=== PATIENT | female | born 2000 | race Hispanic/Latino ===

== ENCOUNTER 2023-01-19 17:49 | Emergency (ER) | payer BC, OTHER, SELFPAY ==
[2023-01-19 18:44] LABS: Bilirubin Neg (Negative); Blood, Urine Negative (Negative); Clarity Clear (Clear); Glucose, Urine (Dipstick) Normal (Negative); Ketone, Urine Negative (Negative); Leukocyte Negative (Negative); Nitrite Negative (Negative); Protein, Urine (Dipstick) Negative (Neg-Trace); Specific Gravity, Urine 1.015 (1.005-1.030); Urobilinogen Normal mg/dL (Less than 2)
[2023-01-19 19:07] LABS: Bacteria/HPF None Seen HPF (None Seen); CAUTI Indications for Culture Alt mental st,lethar; RBC/HPF None Seen HPF (0-3); Squamous Epithelial 0-3 HPF (0-3); WBC/HPF None Seen HPF (0-3)
[2023-01-19 19:08] LABS: Urine Culture Reflex No No
[2023-01-19 19:08] LABS: #Eosinphils 0.1 10x3/uL (0.0-0.5); #Monocytes 0.8 10x3/uL (0.0-1.1); #Neutrophils 11.6 10x3/uL (1.5-8.4); %Basophils 0.3 % (0.0-2.0); %Eosinophils 0.5 % (0.0-6.0); %Lymphocytes 14.2 % (18.0-47.0); %Monocytes 5.6 % (0.0-10.0); %Neutrophils 79.1 % (40.0-75.0); Hematocrit 34.4 % (34.9-44.5); Hemoglobin 12.6 g/dL (12.0-15.5); Mean Corpuscular HGB CONC 36.6 g/dL (32.0-36.0); Mean Corpuscular Hemoglobin 32.7 pg (27.0-33.0); Mean Corpuscular Volume 89.4 fl (81.6-98.3); Mean Platelet Volume 9.8 fl (7.4-10.4); Platelet Count 258 10x3/uL (150-450); Red Blood Cell (RBC) Count 3.85 10x6/uL (3.90-5.03); White Blood Cell (WBC) Count 14.7 10x3/uL (3.5-10.5)
[2023-01-19 19:23] LABS: ALT (SGPT) 8 U/L (8-55); AST (SGOT) 9 U/L (5-34); Albumin 3.8 g/dL (3.5-5.0); Alkaline Phosphatase 41 U/L (40-110); Anion Gap 14 mmol/L (10-20); BUN (Urea Nitrogen) 6 mg/dL (7.0-18.7); Bilirubin, Total 0.4 mg/dL (0.2-1.2); Calc. Creatinine Clearance 0 mL/min (70-130); Calcium 9.1 mg/dL (7.8-10.44); Carbon Dioxide 19 mmol/L (22-29); Chloride 109 mmol/L (98-107); Estimated GFR 128; Globulin 2.5 g/dL (2.4-3.5); Glucose 105 mg/dL (70-105); Lipase 26 U/L (8-78); Potassium 3.7 mmol/L (3.5-5.1); Protein, Total 6.3 g/dL (6.0-8.3); Sodium 138 mmol/L (136-145)
[2023-01-19 20:12] LABS: Troponin I Less than 0.010 ng/mL (< 0.028)
== END 2023-01-19 21:08 | disposition home or self-care (01) ==
LOC: CSHERS 17:49
DX: O99.891 Other specified diseases and conditions complicating pregnancy (principal); R55 Syncope and collapse; Z3A.10 10 weeks gestation of pregnancy
CPT/HCPCS: 76815; 80053; 81001; 83690; 84484; 85025; 93005; 96360; 96361

== ENCOUNTER 2023-03-27 08:25 | Emergency (ER) | payer MEDICAID, OTHER | END 2023-03-27 11:27 | disposition home or self-care (01) | LOC: CSHERS 08:25 | DX: R09.1 Pleurisy (principal) | CPT/HCPCS: 71045; 85379; 93005 ==

== ENCOUNTER 2023-03-31 02:54 | Emergency (ER) | payer OTHER ==
[2023-03-31] MEDS ORDERED: Acetaminophen 500 MG TAB ONE (03:13)
== END 2023-03-31 04:00 | disposition home or self-care (01) ==
LOC: CSHERS 02:54
DX: R07.89 Other chest pain (principal)
CPT/HCPCS: 93005

== ENCOUNTER 2023-06-30 23:59 | Day surgery (SDC) | payer OTHER ==
[2023-07-01 01:07] VITALS: BMI 29.2
[2023-07-01 01:29] LABS: Bilirubin Neg (Negative); Blood, Urine Negative (Negative); Clarity Clear (Clear); Glucose, Urine (Dipstick) Normal (Negative); Ketone, Urine Negative (Negative); Leukocyte Negative (Negative); Nitrite Negative (Negative); Protein, Urine (Dipstick) Negative (Neg-Trace); Specific Gravity, Urine 1.015 (1.005-1.030)
[2023-07-01 01:35] LABS: Bacteria/HPF None Seen HPF (None Seen); CAUTI Indications for Culture Pelvic or flank pain; RBC/HPF None Seen HPF (0-3); Squamous Epithelial 0-3 HPF (0-3); Urine Culture Reflex No No; WBC/HPF 0-3 HPF (0-3)
[2023-07-01 01:36] LABS: #Basophils 0.03 10x3/uL (0.0-0.2); #Eosinphils 0.13 10x3/uL (0.0-0.5); #Monocytes 1.16 10x3/uL (0.0-1.1); %Basophils 0.2 % (0.0-2.0); %Neutrophils 70.3 % (40.0-75.0); Hematocrit 31.6 % (34.9-44.5); Mean Corpuscular HGB CONC 34.8 g/dL (32.0-36.0); Mean Corpuscular Hemoglobin 31.5 pg (27.0-33.0); Mean Corpuscular Volume 90.5 fl (81.6-98.3); Mean Platelet Volume 9.6 fl (7.4-10.4); Platelet Count 247 10x3/uL (150-450); Red Blood Cell (RBC) Count 3.49 10x6/uL (3.90-5.03); White Blood Cell (WBC) Count 12.8 10x3/uL (3.5-10.5)
[2023-07-01 01:49] LABS: ALT (SGPT) 7 U/L (8-55); AST (SGOT) 14 U/L (5-34); Albumin 2.3 g/dL (3.5-5.0); Alkaline Phosphatase 133 U/L (40-110); Anion Gap 13 mmol/L (10-20); BUN (Urea Nitrogen) 6 mg/dL (7.0-18.7); Bilirubin, Total 0.4 mg/dL (0.2-1.2); Calc. Creatinine Clearance 163 mL/min (70-130); Carbon Dioxide 21 mmol/L (22-29); Chloride 108 mmol/L (98-107); Estimated GFR 127; Globulin 3.5 g/dL (2.4-3.5); Glucose 76 mg/dL (70-105); Potassium 3.5 mmol/L (3.5-5.1); Protein, Total 5.8 g/dL (6.0-8.3); Sodium 138 mmol/L (136-145)
[2023-07-01] MEDS ORDERED: hydrALAZINE 20 MG/ML VIAL SLOW IVP PRN (02:45)
[2023-07-01] MEDS: Acetaminophen 325 MG TAB PO PRN (06:05)
== END 2023-07-01 06:20 | disposition home or self-care (01) ==
LOC: CSHLD/OP 23:59
PROVIDERS: ATTEND Family Medicine
DX: O99.891 Other specified diseases and conditions complicating pregnancy (principal); R10.11 Right upper quadrant pain; M94.0 Chondrocostal junction syndrome [Tietze]; Z79.899 Other long term (current) drug therapy
CPT/HCPCS: 36415; 76705; 80053; 81001; 85025

== ENCOUNTER 2023-08-03 04:41 | Day surgery (SDC) | payer OTHER ==
[2023-08-03 05:26] VITALS: BMI 30.1
[2023-08-03] MEDS ORDERED: hydrALAZINE 20 MG/ML VIAL SLOW IVP PRN (05:33)
[2023-08-03] MEDS ORDERED: Acetaminophen 500 MG TAB PO SCH (05:45)
[2023-08-03 05:55] LABS: Bilirubin Neg (Negative); Blood, Urine 10 (Negative); Clarity Clear (Clear); Glucose, Urine (Dipstick) Normal (Negative); Ketone, Urine Negative (Negative); Leukocyte Negative (Negative); Nitrite Negative (Negative); Protein, Urine (Dipstick) 15 mg/dl (Neg-Trace); Specific Gravity, Urine 1.015 (1.005-1.030)
[2023-08-03 06:03] LABS: Bacteria/HPF Rare-Few HPF (None Seen); CAUTI Indications for Culture Pregnancy; Mucous/LPF Rare LPF (<2+); RBC/HPF 0-3 HPF (0-3); Squamous Epithelial 0-3 HPF (0-3); WBC/HPF 0-3 HPF (0-3)
[2023-08-03 06:05] LABS: Urine Culture Reflex Yes Yes
== END 2023-08-03 07:44 | disposition home or self-care (01) ==
LOC: CSHLD/OP 04:41
PROVIDERS: ATTEND Student in an Organized Health Care Education/Training Program
DX: O47.1 False labor at or after 37 completed weeks of gestation (principal); O99.891 Other specified diseases and conditions complicating pregnancy; M54.50 Low back pain, unspecified; R03.0 Elevated blood-pressure reading, without diagnosis of hypertension; O46.93 Antepartum hemorrhage, unspecified, third trimester; Z3A.38 38 weeks gestation of pregnancy
CPT/HCPCS: 81001; 87077; 87086; 99282

== ENCOUNTER 2023-08-04 03:32 | Inpatient (IN) | payer OTHER ==
[2023-08-04] MEDS ORDERED: hydrALAZINE 20 MG/ML VIAL SLOW IVP PRN ×3 (04:26→09:49)
[2023-08-04 04:46] LABS: Fetal Membranes Rupture No Membranes Rupture (No Rupture)
[2023-08-04 04:54] LABS: Bilirubin Neg (Negative); Blood, Urine 25 (Negative); Clarity Clear (Clear); Glucose, Urine (Dipstick) Normal (Negative); Ketone, Urine Negative (Negative); Leukocyte Negative (Negative); Nitrite Negative (Negative); Protein, Urine (Dipstick) Negative (Neg-Trace); Specific Gravity, Urine 1.005 (1.005-1.030); Urobilinogen Normal mg/dL (Less than 2); pH, Urine 6.5 (5.0-9.0)
[2023-08-04 05:04] LABS: Bacteria/HPF Rare-Few HPF (None Seen); CAUTI Indications for Culture Dysuria,urgency,freq; RBC/HPF 0-3 HPF (0-3); Squamous Epithelial 0-3 HPF (0-3); Urine Culture Reflex No No; WBC/HPF 0-3 HPF (0-3)
[2023-08-04 05:26] LABS: Amphetamine Not Detected (NotDetected); Barbiturates Screen Not Detected (NotDetected); Benzodiazepine Screen Not Detected (NotDetected); Cocaine Metabolite Screen Not Detected (NotDetected); Methadone Not Detected (NotDetected); Methamphetamine Not Detected (NotDetected); Opiate Screen Not Detected (NotDetected); Oxycodone Screen Not Detected (NotDetected); Phencyclidine (PCP) Not Detected (NotDetected); THC/Cannabinoid Screen Detected (NotDetected); Tricyclic Screen Not Detected (NotDetected)
[2023-08-04] MEDS ORDERED: Methylergonovine 0.2 MG/ML VIAL IM PRN (05:34)
[2023-08-04] MEDS ORDERED: Lidocaine 1% (PF) 30 ML VIAL SC PRN (05:34)
[2023-08-04] MEDS ORDERED: Promethazine HCl 25 MG/ML VIAL IM PRN ×2 (05:34→09:43)
[2023-08-04] MEDS ORDERED: Carboprost 250 MCG/ML AMP IM PRN (05:34)
[2023-08-04] MEDS ORDERED: Ibuprofen 800 MG TAB PO PRN (05:34)
[2023-08-04] MEDS ORDERED: Misoprostol 200 MCG TAB PR PRN (05:34)
[2023-08-04] MEDS ORDERED: Tranexamic Acid 1,000 MG/10 ML VIAL IVP PRN (05:34)
[2023-08-04] MEDS ORDERED: Oxytocin 30 units/NS 500 ML 500 ML IV SCH (05:45)
[2023-08-04 06:02] LABS: Influenza A by NAA Not Detected (NotDetected); Influenza B by NAA Not Detected (NotDetected); SARS-CoV-2 NAA Rapid Test Not Detected (NotDetected)
[2023-08-04 06:53] LABS: #Basophils 0.03 10x3/uL (0.0-0.2); #Eosinphils 0.05 10x3/uL (0.0-0.5); #Neutrophils 16.37 10x3/uL (1.5-8.4); %Basophils 0.2 % (0.0-2.0); %Eosinophils 0.3 % (0.0-6.0); %Lymphocytes 9.1 % (18.0-47.0); %Neutrophils 81.9 % (40.0-75.0); Hemoglobin 12.1 g/dL (12.0-15.5); Mean Corpuscular HGB CONC 34.6 g/dL (32.0-36.0); Mean Corpuscular Hemoglobin 30.4 pg (27.0-33.0); Mean Corpuscular Volume 87.9 fL (81.6-98.3); Mean Platelet Volume 10.7 fL (7.4-10.4); Platelet Count 257 10x3/uL (150-450); RBC Distribution Width 12.2 % (11.5-14.5); Red Blood Cell (RBC) Count 3.98 10x6/uL (3.90-5.03)
[2023-08-04 07:05] VITALS: BMI 30.9
[2023-08-04 07:21] LABS: HBsAg Index 0.16 S/CO (0-0.99); Hep B Surf Ag - L&D Non-Reactive S/CO (NonReactive)
[2023-08-04 07:23] LABS: Syphilis Antibody Nonreactive (Nonreactive); Syphilis Antibody Index 0.04 S/CO (<1.00 Non-Reactive)
[2023-08-04] MEDS: Ondansetron PF 4 MG/2 ML Vial IVP PRN (07:36)
[2023-08-04] MEDS: Ampicillin 2 GM in Sodium Chloride 0.9% 100 ML IVPB SCH (07:44)
[2023-08-04] MEDS: Acetaminophen 500 MG TAB PO SCH ×2 (07:44→15:59)
[2023-08-04] MEDS ORDERED: Bicitra 30 ML UDCUP PO PRN (07:58)
[2023-08-04] MEDS ORDERED: Famotidine/PF 20 mg/2ml Vial SLOW IVP PRN (07:58)
[2023-08-04] MEDS: Clindamycin/D5W 900 MG in Premix 1 BAG IVPB SCH (08:43)
[2023-08-04] MEDS: Gentamicin Sulfate 320 MG in Sodium Chloride 0.9% 100 ML IVPB SCH (08:58)
[2023-08-04 08:59] LABS: ALT (SGPT) 11 U/L (8-55); AST (SGOT) 14 U/L (5-34); Albumin 2.4 g/dL (3.5-5.0); Alkaline Phosphatase 185 U/L (40-110); Anion Gap 16 mmol/L (10-20); BUN (Urea Nitrogen) 5 mg/dL (7.0-18.7); Bilirubin, Total 0.4 mg/dL (0.2-1.2); Calc. Creatinine Clearance 184 mL/min (70-130); Calcium 8.6 mg/dL (7.8-10.44); Carbon Dioxide 17 mmol/L (22-29); Chloride 109 mmol/L (98-107); Estimated GFR 129; Globulin 2.9 g/dL (2.4-3.5); Glucose 80 mg/dL (70-105); Potassium 3.5 mmol/L (3.5-5.1); Protein, Total 5.3 g/dL (6.0-8.3); Sodium 138 mmol/L (136-145)
[2023-08-04] MEDS ORDERED: Clotrimazole 1% Cream 15 GM TUBE TOP SCH (09:00)
[2023-08-04] MEDS: Azithromycin 500 MG in Sodium Chloride 0.9% 250 ML 250 ML IVPB SCH (09:40)
[2023-08-04] MEDS: CEFAZOLIN 2 GM in Sodium Chloride 0.9% 100 ML IVPB SCH (09:40)
[2023-08-04] MEDS ORDERED: Morphine 4 MG/ML VIAL SLOW IVP PRN (09:43)
[2023-08-04] MEDS ORDERED: fentaNYL 50 mcg/mL 1 mL Vial SLOW IVP PRN (09:43)
[2023-08-04] MEDS ORDERED: Naloxone HCl 0.4 mg/ml Vial IV PRN (09:43)
[2023-08-04] MEDS ORDERED: diphenhydrAMINE 50 MG/ML VIAL IVP PRN (09:43)
[2023-08-04] MEDS ORDERED: Moisturizing Cream (Eucerin) 113 GM JAR TOP PRN (09:43)
[2023-08-04] MEDS ORDERED: Naloxone HCl 0.4 mg/ml Vial IVP PRN ×2 (09:43)
[2023-08-04] MEDS ORDERED: Ondansetron PF 4 MG/2 ML Vial IVP PRN (09:43)
[2023-08-04] MEDS ORDERED: Communication Order-Pharmacy FS SCH (09:45)
[2023-08-04] MEDS ORDERED: diphenhydrAMINE 25 MG CAP PO PRN (09:49)
[2023-08-04] MEDS ORDERED: Lanolin Ointment 7 GM TUBE TOP PRN (09:49)
[2023-08-04] MEDS ORDERED: Zolpidem Tartrate 5 MG TAB PO PRN (09:49)
[2023-08-04] MEDS ORDERED: Acetaminophen 325 MG TAB PO PRN (09:49)
[2023-08-04] MEDS ORDERED: Simethicone Chewable 80 MG TAB PO PRN (09:49)
[2023-08-04] MEDS ORDERED: Bisacodyl 10 MG SUPP PR PRN (09:49)
[2023-08-04 10:33] LABS: Analyzer IN Cardio CS NICU; RapidComm Collect By OR NURSE; pH (Cord, venous) 7.326 (7.250-7.350)
[2023-08-04 10:36] LABS: Analyzer IN Cardio CS NICU; RapidComm Collect By OR NURSE
[2023-08-04] MEDS: Ketorolac Tromethamine 30 MG (1 mL) VIAL IVP SCH (11:33)
[2023-08-04] MEDS: Meperidine HCl/PF 25 MG (1 mL) VIAL SLOW IVP PRN (11:44)
[2023-08-04] MEDS: Lorazepam 2 MG/ML VIAL SLOW IVP PRN (11:44)
[2023-08-04] MEDS: Lactated Ringer's 1,000 ML IV SCH ×3 (15:58)
[2023-08-04] MEDS: Lactated Ringer's 500 ML IV SCH (15:59)
[2023-08-04] MEDS: ePHEDrine Sulfate 50 MG/10 ML VIAL ONE (15:59)
[2023-08-04] MEDS: Morphine PF 10 MG/10 ML VIAL ONE (15:59)
[2023-08-04] MEDS: Ondansetron PF 4 MG/2 ML Vial ONE (16:00)
[2023-08-04] MEDS: Phenylephrine 40 MG/NS 250 ML 250 ML ONE (16:00)
[2023-08-04] MEDS: Oxytocin 10 UNITS/ML VIAL ONE (16:00)
[2023-08-04] MEDS: Fluconazole In NaCl,Iso-Osm 200 MG in Premix 1 BAG IVPB SCH (16:01)
[2023-08-04] MEDS: fentaNYL 50 mcg/mL 1 mL Vial ONE (16:02)
[2023-08-04] MEDS: Lorazepam 2 MG/ML VIAL ONE (16:02)
[2023-08-04] MEDS: Boostrix 0.5 ML (Tdap) VIAL (>/=7 yrs of age) IM ONE (17:22)
[2023-08-04] MEDS: Docusate 100 MG CAP PO SCH (19:41)
[2023-08-05] MEDS: Ketorolac Tromethamine 30 MG (1 mL) VIAL IVP PRN (00:19)
[2023-08-05 07:31] LABS: Hematocrit 27.4 % (34.9-44.5); Hemoglobin 9.5 g/dL (12.0-15.5); Mean Corpuscular HGB CONC 34.7 g/dL (32.0-36.0); Mean Corpuscular Hemoglobin 30.4 pg (27.0-33.0); Mean Corpuscular Volume 87.8 fL (81.6-98.3); Mean Platelet Volume 10.3 fL (7.4-10.4); Platelet Count 215 10x3/uL (150-450); RBC Distribution Width 12.5 % (11.5-14.5); Red Blood Cell (RBC) Count 3.12 10x6/uL (3.90-5.03); White Blood Cell (WBC) Count 25.8 10x3/uL (3.5-10.5)
[2023-08-05] MEDS: HYDROcodone/Acetaminophen 5/325 mg Tablet PO PRN (08:25)
[2023-08-05 08:39] LABS: Band 21 % (5-11); Lymphocytes 9 % (21-51); MDiff Complete? YES; Monocytes 4 % (0-10); Neutrophil 66 % (42-75); Polychromasia SLIGHT = 2-3 cells (100X) (0-2/hpf)
[2023-08-05 08:40] LABS: Platelet Adequacy Comment Appears Adequate
[2023-08-05 13:13] LABS: Chlam.trachomatis by PCR,Urine Not Detected (NotDetected); GC N.gonorrhoeae PCR,UrineVOID Not Detected (NotDetected)
[2023-08-05] MEDS: Ibuprofen 800 MG TAB PO SCH (13:54)
[2023-08-05] MEDS: Ondansetron PF 4 MG/2 ML Vial IVP PRN (15:55)
[2023-08-06] MEDS: Diphenoxylate HCl/Atropine Tablet PO PRN (02:08)
[2023-08-06 04:25] LABS: ALT (SGPT) 7 U/L (8-55); AST (SGOT) 12 U/L (5-34); Albumin 1.8 g/dL (3.5-5.0); Alkaline Phosphatase 110 U/L (40-110); Anion Gap 9 mmol/L (10-20); BUN (Urea Nitrogen) 6 mg/dL (7.0-18.7); Bilirubin, Total 0.2 mg/dL (0.2-1.2); Calc. Creatinine Clearance 165 mL/min (70-130); Calcium 8.3 mg/dL (7.8-10.44); Carbon Dioxide 23 mmol/L (22-29); Chloride 111 mmol/L (98-107); Estimated GFR 126; Globulin 3.3 g/dL (2.4-3.5); Glucose 70 mg/dL (70-105); Potassium 3.8 mmol/L (3.5-5.1); Protein, Total 5.1 g/dL (6.0-8.3); Sodium 139 mmol/L (136-145)
[2023-08-06 04:37] LABS: #Basophils 0.03 10x3/uL (0.0-0.2); #Eosinphils 0.06 10x3/uL (0.0-0.5); #Monocytes 1.08 10x3/uL (0.0-1.1); #Neutrophils 14.28 10x3/uL (1.5-8.4); %Basophils 0.2 % (0.0-2.0); %Eosinophils 0.4 % (0.0-6.0); %Lymphocytes 8.9 % (18.0-47.0); %Monocytes 6.3 % (0.0-10.0); %Neutrophils 83.7 % (40.0-75.0); Hematocrit 28.4 % (34.9-44.5); Hemoglobin 9.6 g/dL (12.0-15.5); Mean Corpuscular HGB CONC 33.8 g/dL (32.0-36.0); Mean Corpuscular Hemoglobin 30.8 pg (27.0-33.0); Mean Platelet Volume 10.2 fL (7.4-10.4); Platelet Count 220 10x3/uL (150-450); RBC Distribution Width 12.6 % (11.5-14.5); Red Blood Cell (RBC) Count 3.12 10x6/uL (3.90-5.03)
[2023-08-06 11:07] VITALS: BP 119/74; TEMP 98.5
== END 2023-08-06 15:00 | disposition home or self-care (01) | DRG 786 ==
LOC: CSHLD/OP 03:32 → CSHLD 06:15 → CSHPP 13:28
PROVIDERS: ADMIT Student in an Organized Health Care Education/Training Program; ATTEND Student in an Organized Health Care Education/Training Program
PROC: 10D00Z1 Extraction of Products of Conception, Low, Open Approach (ICD-10-PCS; principal; 2023-08-04)
DX: O76 Abnormality in fetal heart rate and rhythm complicating labor and delivery (principal); O41.1230 Chorioamnionitis, third trimester, not applicable or unspecified; O75.3 Other infection during labor; O98.82 Other maternal infectious and parasitic diseases complicating childbirth; D62 Acute posthemorrhagic anemia; O47.1 False labor at or after 37 completed weeks of gestation; Z3A.38 38 weeks gestation of pregnancy; Z37.0 Single live birth; O99.824 Streptococcus B carrier state complicating childbirth; B37.31 Acute candidiasis of vulva and vagina; O99.891 Other specified diseases and conditions complicating pregnancy; M54.50 Low back pain, unspecified; R03.0 Elevated blood-pressure reading, without diagnosis of hypertension; O46.93 Antepartum hemorrhage, unspecified, third trimester
CPT/HCPCS: 36415; 51702; 71045; 76819; 80053; 80306; 81001; 82805; 83605; 84112; 85025; 86780; 86850; 86900; 86901; 87040; 87077; 87086; 87340; 87480; 87491; 87510; 87591; 87660; 87661; 88307; 99282; 99285; J0290; J0456; J1450; J1580; J1885; J2060; J2175; J2274; J2405; J2590; J3010; J3490; J7050; J7120